=== PATIENT | female | born 1975 | race Caucasian/White ===

== ENCOUNTER → 2018-01-30 10:26 | Outpatient (CLI) | payer OTHER, MEDICAID, SELFPAY ==
--- NOTE | 2018-01-30 10:30 | DI.CT.S_ITS ---
PROCEDURE: CT ABDOMEN PELVIS W CON INDICATIONS: left inguinal and abdominal pain TECHNIQUE: After the administration of oral and intravenous contrast, 5 mm thick sections acquired from the diaphragms to the symphysis. 5 mm thick coronal and sagittal reformats were performed. For radiation dose reduction, the following was used: automated exposure control, adjustment of mA and/or kV according to patient size. COMPARISON: [facility], , L-SPINE WITHOUT CONTRAST, 10/06/2014, 13:21. FINDINGS: Image quality: Excellent. ABDOMEN: Lung bases: Lung bases are clear. Heart size is normal. Solid organs: Liver is normal in size and overall enhancement. Multiple punctate hypodense subcentimeter lesions are present within the liver which may represent simple hepatic cysts but are incompletely characterized given the small size. Gallbladder is unremarkable. Biliary system is non-dilated. Pancreas enhances normally. Spleen is normal in size and enhancement. No adrenal nodules. Kidneys are normal in size and enhancement, without hydronephrosis. Peritoneum and bowel: Stomach, small bowel, and colon loops are normal in caliber and wall thickness. The appendix is thin walled and gas filled. There are scattered sigmoid diverticula. No evidence for diverticulitis. No free fluid or air. Nodes and vessels: No retroperitoneal or mesenteric adenopathy. Aorta and inferior vena cava are normal in caliber. Miscellaneous: No ventral hernias. PELVIS: Genitourinary: Bladder wall thickness is normal. The uterus is grossly unremarkable. Small cystic lesions are present within the bilateral ovaries which are likely physiologic in a premenopausal female. Miscellaneous: No inguinal hernias or adenopathy. Bones: No suspicious bony lesions. No vertebral body compression fractures. Schmorl's nodes are redemonstrated within the L2 vertebral body unchanged from prior studies. IMPRESSION: 1. No acute intra-abdominal findings. Normal appendix. 2. No inguinal hernias or other findings to explain left inguinal pain. 3. Sigmoid diverticulosis. No acute diverticulitis. Dictated by: Deepthi Cancino M.D. on 01/30/2018 at 17:07 Approved by: Deepthi Cancino M.D. on 01/30/2018 at 17:10
== END ==
PROVIDERS: PCP Family Medicine; Visit Provider Surgery
DX: R10.32 Left lower quadrant pain (principal); K57.30 Diverticulosis of large intestine without perforation or abscess without bleeding
CPT/HCPCS: 74177

== ENCOUNTER → 2019-12-26 12:52 | Outpatient (CLI) | payer OTHER, MEDICAID, SELFPAY ==
--- NOTE | 2019-12-26 | DI.MRI.S_ITS ---
PROCEDURE: MR KNEE LT WO CON INDICATIONS: OTHER TEAR OF UNSPECIFIED TECHNIQUE: Noncontrast sagittal PD fast spin echo and T2 fast spin echo with fat saturation, sagittal 3-D FLASH with fat saturation; coronal T1 spin echo and PD fast spin echo with fat saturation, and axial PD fast spin echo with fat saturation through the knee. COMPARISON: None. FINDINGS: Image quality: Excellent. Menisci: The medial meniscus is intact. There is ill-defined high signal intensity traversing the lateral meniscal body without discrete tear. Cruciate ligaments: The anterior and posterior cruciate ligaments appear intact. Medial structures: The medial collateral ligament appears intact. Visualized portions of the pes anserinus tendons appear normal. No abnormal bursal fluid. Lateral structures: The lateral collateral ligament, long and short heads of the biceps femoris tendon appear intact. The popliteus tendon appears normal. Iliotibial band appears normal. Anterior structures: The quadriceps and patellar tendons appear intact. Patellar alignment is normal. No femoral trochlear dysplasia or ventral trochlear prominence. Moderate edema in the superolateral aspect of the infrapatellar fat pad. Bones and cartilage: No bone marrow contusions or fractures. Articular cartilage fibrillation overlies the mid and inferior aspects of the lateral patellar facet. Moderate articular cartilage loss overlies the medial patellar facet inferiorly. Mild ill-defined underlying degenerative marrow edema within the medial patella. Mild articular cartilage loss diffusely overlies the weight-bearing aspects of the medial femoral condyle and medial tibial plateau. Joint space: There is physiologic knee joint fluid. No Davis's cyst. Normal appearing synovial plicae are incidentally noted. IMPRESSION: 1. Degenerative fraying of the lateral meniscal body without discrete tear. 2. Findings consistent with lateral patellofemoral friction syndrome in the appropriate clinical setting. Dictated by: Becca Wang M.D. on 12/28/2019 at 10:37 Approved by: Becca Wang M.D. on 12/28/2019 at 10:54
== END ==
PROVIDERS: PCP Family Medicine; Referring Provider Family Medicine; Visit Provider Family Medicine
DX: S83.207A Unspecified tear of unspecified meniscus, current injury, left knee, initial encounter (principal)
CPT/HCPCS: 73721